=== PATIENT | female | born 1965 | race Caucasian/White ===

== ENCOUNTER 2021-12-25 04:03 | Inpatient (IN) | payer MEDICAID ==
[~2021-12-25] VITALS: Ht 167.6 cm; Wt 60.8 kg
[2021-12-25 04:08] VITALS: BP_SYST 121
[2021-12-25] MEDS ORDERED: MAGNESIUM SULFATE 50 ML IV ONE (04:30)
[2021-12-25] MEDS ORDERED: NITROGLYCERIN 0.4 MG TAB.SUBL SL ONE (04:30)
[2021-12-25] MEDS ORDERED: ACETAMINOPHEN 500 MG TABLET PO ONE (04:30)
[2021-12-25 04:36] LABS: BASOPHILS % (AUTO) 0.6 % (0.0-2.0); EOSINOPHILS # (AUTO) 0.1 K/uL (0.0-0.4); EOSINOPHILS % (AUTO) 2.1 % (0.0-4.0); HEMATOCRIT 41.2 % (36-48); HEMOGLOBIN 14.1 g/dL (12.0-16.0); LYMPHOCYTES # (AUTO) 1.6 K/uL (1.0-5.5); LYMPHOCYTES % (AUTO) 26.8 % (20.5-51.5); MEAN CORPUSCULAR HEMOGLOBIN 28 pg (27-31); MEAN CORPUSCULAR HGB CONC 34 % (32-36); MEAN CORPUSCULAR VOLUME 83 fL (79.0-98.0); MONOCYTES # (AUTO) 0.4 K/uL (0.0-1.0); MONOCYTES % (AUTO) 7.1 % (1.7-9.3); NEUTROPHILS # (AUTO) 3.9 K/uL (1.8-7.7); NEUTROPHILS % (AUTO) 63.4 % (40.0-70.0); PLATELET COUNT (AUTO) 239 K/uL (130-430); RED BLOOD CELL COUNT(AUTO) 4.96 MIL/uL (4.2-6.2); RED CELL DISTRIBUTION WIDTH 14.5 % (9.0-15.0); WHITE BLOOD COUNT (AUTO) 6.1 K/uL (4.8-10.8)
[2021-12-25 04:53] LABS: PROTHROMBIN TIME 10.4 SECS (9.5-12.5)
[2021-12-25 04:59] LABS: ANION GAP 5 (5-15); CALCIUM 8.8 mg/dL (8.4-11.0); CHLORIDE 104 mmol/L (98-107); CREATININE 1.13 mg/dL (0.55-1.30); GLUCOSE 122 mg/dL (70-99); POTASSIUM 3.1 mmol/L (3.5-5.1); SODIUM SERUM 139 mmol/L (136-145); UREA NITROGEN, BLOOD 20 mg/dL (8-21)
[2021-12-25 05:06] LABS: ALANINE AMINOTRANSFERASE 16 U/L (12-78); ALBUMIN 3.3 g/dL (3.4-4.8); ASPARTATE AMINOTRANSFERASE 35 U/L (10-37); TOTAL BILIRUBIN 0.4 mg/dL (0.0-1.0)
[2021-12-25 05:07] LABS: ACETAMINOPHEN < 1 ug/mL (1-30); ALCOHOL, BLOOD < 3 mg/dL (<10); GFR AFRICAN AMERICAN 64 mL/min (>90)
[2021-12-25] MEDS ORDERED: POTASSIUM CHLORIDE 20 MEQ/PKT PACKET PO ONE (05:15)
[2021-12-25] MEDS ORDERED: NS 250 ML IV ONE (05:15)
[2021-12-25 05:29] LABS: CKMB RELATIVE INDEX 1.1 (0.0-2.9); CREATINE KINASE MB 3.9 ng/mL (0-3.6)
[2021-12-25 05:33] LABS: BARBITURATE, URINE NEGATIVE (NEG <=200); BENZODIAZEPINE, URINE NEGATIVE (NEG <=150); CANNABINOID, URINE NEGATIVE (NEG <=50); COCAINE, URINE NEGATIVE (NEG <=150); METHAMPHETAMINES SCREEN,URINE POSITIVE (NEG <=500); OPIATE, URINE NEGATIVE (NEG <=100); PHENCYCLIDINE SCREEN,URINE NEGATIVE (NEG <=25); UR TRICYCLIC ANTIDEPRESSANTS NEGATIVE (NEG <=300); URINE AMPHETAMINE POSITIVE (NEG <=500); URINE METHADONE NEGATIVE (NEG <=200); URINE OXYCODONE SCREEN POSITIVE (NEG <=100); URINE PROPOXYPHENE SCREEN NEGATIVE (NEG <=300)
[2021-12-25] MEDS ORDERED: LORazepam 2 MG/ML VIAL IVP PRN (06:15)
[2021-12-25] MEDS ORDERED: HYDROcodone/ACETAMIN 10-325 MG TAB PO PRN (06:15)
[2021-12-25] MEDS ORDERED: NALOXONE HCL 0.4 MG/ML AMP (NARCAN) IVP PRN ×2 (06:15)
[2021-12-25] MEDS ORDERED: ONDANSETRON HCL 4 MG/2 ML VIAL IVP PRN (06:15)
[2021-12-25] MEDS ORDERED: HYDROcodone/ACETAMIN 5-325 MG TAB (NORCO/ VICODIN) PO PRN (06:15)
[2021-12-25] MEDS ORDERED: NORMAL SALINE 5 ML DISP.SYRIN IVF SCH (14:00)
[2021-12-25] MEDS: NORMAL SALINE 5 ML DISP.SYRIN IVF SCH ×2 (14:07→23:49)
[2021-12-25 15:37] LABS: THYROID STIMULATING HORMONE 0.94 uIu/mL (0.36-3.74)
[2021-12-25 16:54] VITALS: BP_SYST 140
[2021-12-25 16:57] VITALS: BP_SYST 136
[2021-12-25 20:00] VITALS: BP_SYST 151
[2021-12-25] MEDS: ACETAMINOPHEN 325 MG TABLET PO PRN (21:13)
[2021-12-26] VITALS: BP_SYST 146
[2021-12-26] MEDS: NORMAL SALINE 5 ML DISP.SYRIN IVF SCH (06:15)
[2021-12-26] MEDS: ACETAMINOPHEN 325 MG TABLET PO PRN (06:40)
[2021-12-26 06:49] LABS: BASOPHILS % (AUTO) 0.4 % (0.0-2.0); EOSINOPHILS # (AUTO) 0.2 K/uL (0.0-0.4); EOSINOPHILS % (AUTO) 5.2 % (0.0-4.0); HEMATOCRIT 40.9 % (36-48); HEMOGLOBIN 13.9 g/dL (12.0-16.0); LYMPHOCYTES # (AUTO) 1.2 K/uL (1.0-5.5); LYMPHOCYTES % (AUTO) 29.8 % (20.5-51.5); MEAN CORPUSCULAR HEMOGLOBIN 29 pg (27-31); MEAN CORPUSCULAR HGB CONC 34 % (32-36); MEAN CORPUSCULAR VOLUME 84 fL (79.0-98.0); MONOCYTES # (AUTO) 0.3 K/uL (0.0-1.0); MONOCYTES % (AUTO) 8.5 % (1.7-9.3); NEUTROPHILS # (AUTO) 2.3 K/uL (1.8-7.7); NEUTROPHILS % (AUTO) 56.1 % (40.0-70.0); PLATELET COUNT (AUTO) 199 K/uL (130-430); RED BLOOD CELL COUNT(AUTO) 4.86 MIL/uL (4.2-6.2); RED CELL DISTRIBUTION WIDTH 14.8 % (9.0-15.0); WHITE BLOOD COUNT (AUTO) 4.1 K/uL (4.8-10.8)
[2021-12-26 07:05] LABS: CALCIUM 8.2 mg/dL (8.4-11.0); CREATININE 0.91 mg/dL (0.55-1.30); POTASSIUM 3.6 mmol/L (3.5-5.1)
[2021-12-26 08:00] VITALS: BP_SYST 146
[2021-12-26] MEDS ORDERED: CARVEDILOL 6.25 MG TABLET (COREG) PO ONE (10:45)
[2021-12-26] MEDS ORDERED: ATORVASTATIN 20 MG TABLET PO ONE (11:00)
[2021-12-26] MEDS ORDERED: LIP20 PO (11:26)
[2021-12-26] MEDS ORDERED: COR6.25 PO (11:26)
[2021-12-26 11:35] VITALS: BP_SYST 121
[2021-12-26] MEDS ORDERED: LOSARTAN POTASSIUM 50 MG TABLET (COZAAR) PO ONE (12:00)
[2021-12-26 12:48] VITALS: BP_SYST 121
[2021-12-27] MEDS ORDERED: ATORVASTATIN 20 MG TABLET PO SCH (09:00)
[2021-12-27] MEDS ORDERED: LOSARTAN POTASSIUM 50 MG TABLET (COZAAR) PO SCH (09:00)
[2021-12-27] MEDS ORDERED: ONDA-8 TL (11:42)
[2021-12-27] MEDS ORDERED: HYDR-3917 PO (11:42)
== END 2021-12-26 12:35 | disposition home or self-care (01) | DRG 203 ==
LOC: SED 04:03 → STU 05:38
PROVIDERS: ADMIT Preventive Medicine Preventive Medicine/Occupational Environmental Medicine; ATTEND Preventive Medicine Preventive Medicine/Occupational Environmental Medicine
DX: R07.89 Other chest pain (principal); E88.09 Other disorders of plasma-protein metabolism, not elsewhere classified; I42.7 Cardiomyopathy due to drug and external agent; E87.6 Hypokalemia; F15.10 Other stimulant abuse, uncomplicated; F32.A Depression, unspecified; I10 Essential (primary) hypertension; R73.9 Hyperglycemia, unspecified; Z20.822 Contact with and (suspected) exposure to COVID-19; Z79.899 Other long term (current) drug therapy; Z86.73 Personal history of transient ischemic attack (TIA), and cerebral infarction without residual deficits
CPT/HCPCS: 36415; 71045; 80048; 80053; 80061; 80307; 82550; 82553; 83880; 84443; 84484; 85025; 85379; 85610-TC; 85730-TC; 93005; 93306; 96365; 99285; G0378; G0480; G0481; G0482; J3475

== ENCOUNTER 2021-12-26 22:49 | Emergency (ER) | payer MEDICAID ==
[~2021-12-26] VITALS: Ht 165.1 cm; Wt 65.8 kg
[~2021-12-26 22:49] MED LIST: COR6.25 PO; LIP20 PO
[2021-12-26 23:10] VITALS: BP_SYST 170
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
--- NOTE | 2021-12-26 23:25 | NUR ---
Blood samples sent to lab
--- NOTE | 2021-12-26 23:35 | NUR ---
First contact. Pt lying in bed crying. Presently on monitor.
--- NOTE | 2021-12-26 23:45 | NUR ---
Dr. Aguilar present in room at this time.
[2021-12-27] MEDS ORDERED: ONDANSETRON 4 MG ODT TAB PO ONE
[2021-12-27 00:21] LABS: HEMATOCRIT 41.8 % (36-48)
[2021-12-27 00:24] LABS: CALCIUM 8.6 mg/dL (8.4-11.0); CREATININE 1.03 mg/dL (0.55-1.30); POTASSIUM 3.8 mmol/L (3.5-5.1)
[2021-12-27 00:27] LABS: BASOPHILS % (AUTO) 0.3 % (0.0-2.0); EOSINOPHILS # (AUTO) 0.2 K/uL (0.0-0.4); EOSINOPHILS % (AUTO) 2.3 % (0.0-4.0); LYMPHOCYTES # (AUTO) 1.4 K/uL (1.0-5.5); MEAN CORPUSCULAR HEMOGLOBIN 28 pg (27-31); MEAN CORPUSCULAR HGB CONC 34 % (32-36); MEAN CORPUSCULAR VOLUME 85 fL (79.0-98.0); MONOCYTES # (AUTO) 0.5 K/uL (0.0-1.0); MONOCYTES % (AUTO) 7.2 % (1.7-9.3); NEUTROPHILS # (AUTO) 4.5 K/uL (1.8-7.7); NEUTROPHILS % (AUTO) 68.2 % (40.0-70.0); PLATELET COUNT (AUTO) 247 K/uL (130-430); RED BLOOD CELL COUNT(AUTO) 4.95 MIL/uL (4.2-6.2); RED CELL DISTRIBUTION WIDTH 14.4 % (9.0-15.0); WHITE BLOOD COUNT (AUTO) 6.6 K/uL (4.8-10.8)
[2021-12-27 00:30] LABS: ALBUMIN 3.3 g/dL (3.4-4.8); TOTAL BILIRUBIN 0.3 mg/dL (0.0-1.0)
[2021-12-27 02:09] LABS: BILIRUBIN,URINE NEGATIVE (NEGATIVE); BLOOD, URINE NEGATIVE (NEGATIVE); CLARITY/URINE CLEAR (CLEAR); COLOR,URINE YELLOW (YELLOW); GLUCOSE,URINE NEGATIVE (NEGATIVE); KETONES,URINE NEGATIVE (NEGATIVE); LEUKOCYTE ESTERASE ,URINE NEGATIVE (NEGATIVE); NITRITE, URINE NEGATIVE (NEGATIVE); PROTEIN URINE NEGATIVE (NEGATIVE); UROBILINOGEN,URINE 0.2 (0.2-1.0)
--- NOTE | 2021-12-27 07:00 | NUR ---
Pt visibly upset and cries everytime I am in the room.
--- NOTE | 2021-12-27 07:06 | NUR ---
Pt refuses to allow peer to discharge her. Pt visibly crying. Notifying dayshift nurse to handle.
--- NOTE | 2021-12-27 07:15 | NUR ---
RECEIVED PT IN BED #8 EMOTIONAL, NAD, VSS, AAOx3, STATES THE ABDOMINAL PAIN TO THE EPIGASTRIC AND MID ABDOMEN. MD NOTIFIED THAT PAIN REMAINS. ORDERS TO FOLLOW
[2021-12-27] MEDS ORDERED: MAG HYDROX/AL HYDROX/SIMETH 30 ML, LIDOCAINE VISCOUS 2% 15ML (PO) 15 ML, DICYCLOMINE HC... PO ONE ×3 (07:30)
[2021-12-27] MEDS ORDERED: NACL 0.9% 1,000 ML IV ONE (08:15)
[2021-12-27] MEDS ORDERED: KETOROLAC TROMETHAMINE 30 MG VIAL IVP ONE (08:15)
--- NOTE | 2021-12-27 09:30 | NUR ---
PT HAD U/S COMPLETED, TOLERATED WELL, AWAITING DISPOSITION WITH PLAN OF CARE AFTER RESULTS
[2021-12-27 11:30] VITALS: BP_SYST 130
[2021-12-27] MEDS ORDERED: ONDA-8 TL (11:42)
[2021-12-27] MEDS ORDERED: HYDR-3917 PO (11:42)
[2021-12-27] MEDS ORDERED: MORPHINE 4 MG INJ. 4 MG/ML VIAL IVP ONE ×2 (11:45)
--- NOTE | 2021-12-27 12:18 | NUR ---
Patient given written and verbal discharge instructions and verbalizes understanding. ER MD discussed with patient the results and treatment provided. Patient in stable condition. ID arm band removed. IV catheter removed intact and dressing applied, no active bleeding. Patient educated on pain management and to follow up with PMD. Pain Scale 0/10. Opportunity for questions provided and answered.
== END 2021-12-27 12:18 | disposition home or self-care (01) ==
LOC: SED 22:49
DX: S09.90XA Unspecified injury of head, initial encounter (principal); R10.9 Unspecified abdominal pain; I10 Essential (primary) hypertension; Z79.899 Other long term (current) drug therapy; Y04.0XXA Assault by unarmed brawl or fight, initial encounter; Y93.89 Activity, other specified; Y92.89 Other specified places as the place of occurrence of the external cause; Y99.8 Other external cause status
CPT/HCPCS: 36415; 70450; 74176; 76376; 76700; 80053; 81003; 81025; 83690; 85025; 96361; 96374; 96375; 96376; 99285; J1885; J2001; J2270; J7030; Q0162

== ENCOUNTER 2022-01-05 09:07 | Emergency (ER) | payer MEDICAID, OTHER ==
[~2022-01-05] VITALS: Ht 175.3 cm; Wt 68.0 kg
[2022-01-05 09:07] VITALS: BP_SYST 111
[~2022-01-05 09:07] MED LIST changes: +HYDR-3917 PO; +ONDA-8 TL
--- NOTE | 2022-01-05 09:07 | NUR ---
BROUGHT BACK TO BED #5 AND TRIAGED. REPORT GIVEN TO TANA
--- NOTE | 2022-01-05 09:42 | NUR ---
ER at bedside examining patient.
[2022-01-05] MEDS ORDERED: ONDANSETRON HCL 4 MG/2 ML VIAL IVP ONE (10:00)
[2022-01-05] MEDS ORDERED: NACL 0.9% 1,000 ML IV ONE (10:00)
[2022-01-05] MEDS ORDERED: KETOROLAC TROMETHAMINE 30 MG VIAL IVP ONE (10:00)
--- NOTE | 2022-01-05 10:06 | NUR ---
Pt present to ED with complaint of generalized abdominal pain. Aox4 GCS 15. Pt appears disheveled, rambling with incoherent though process and unable to stay awake. Pt denies SI or HI. Will continue to monitor pt
[2022-01-05 10:10] LABS: BASOPHILS % (AUTO) 0.5 % (0.0-2.0); EOSINOPHILS # (AUTO) 0.1 K/uL (0.0-0.4); EOSINOPHILS % (AUTO) 2.4 % (0.0-4.0); HEMATOCRIT 42.1 % (36-48); LYMPHOCYTES # (AUTO) 1.1 K/uL (1.0-5.5); LYMPHOCYTES % (AUTO) 20.6 % (20.5-51.5); MEAN CORPUSCULAR HEMOGLOBIN 29 pg (27-31); MEAN CORPUSCULAR HGB CONC 33 % (32-36); MEAN CORPUSCULAR VOLUME 86 fL (79.0-98.0); MONOCYTES # (AUTO) 0.3 K/uL (0.0-1.0); MONOCYTES % (AUTO) 5.5 % (1.7-9.3); NEUTROPHILS # (AUTO) 3.8 K/uL (1.8-7.7); PLATELET COUNT (AUTO) 257 K/uL (130-430); RED CELL DISTRIBUTION WIDTH 14.6 % (9.0-15.0); WHITE BLOOD COUNT (AUTO) 5.4 K/uL (4.8-10.8)
[2022-01-05 10:12] VITALS: BP_SYST 166
[2022-01-05 10:35] LABS: CALCIUM 8.6 mg/dL (8.4-11.0); POTASSIUM 3.4 mmol/L (3.5-5.1)
[2022-01-05 10:42] LABS: ALBUMIN 3.4 g/dL (3.4-4.8); TOTAL BILIRUBIN 0.6 mg/dL (0.0-1.0)
[2022-01-05 11:29] LABS: BARBITURATE, URINE NEGATIVE (NEG <=200); CANNABINOID, URINE NEGATIVE (NEG <=50); COCAINE, URINE NEGATIVE (NEG <=150); METHAMPHETAMINES SCREEN,URINE POSITIVE (NEG <=500); OPIATE, URINE NEGATIVE (NEG <=100); PHENCYCLIDINE SCREEN,URINE NEGATIVE (NEG <=25); UR TRICYCLIC ANTIDEPRESSANTS NEGATIVE (NEG <=300); URINE AMPHETAMINE POSITIVE (NEG <=500); URINE METHADONE NEGATIVE (NEG <=200); URINE OXYCODONE SCREEN NEGATIVE (NEG <=100); URINE PROPOXYPHENE SCREEN NEGATIVE (NEG <=300)
[2022-01-05 11:30] LABS: BENZODIAZEPINE, URINE POSITIVE (NEG <=150)
[2022-01-05] MEDS ORDERED: POTASSIUM CHLORIDE 20 MEQ/PKT PACKET PO ONE (11:45)
[2022-01-05] MEDS ORDERED: IBUP-1969 PO (12:36)
--- NOTE | 2022-01-05 13:40 | NUR ---
PT YELLING AND SCREAMING AT STAFF AND DR. SALEH REFUSING TO LEAVE HOSPITAL. SECURITY WAS CALLED AND THEN [facility] CALLED. PT WAS ESCORTED OUT OF ER BY REYES PAVON.
--- NOTE | 2022-01-05 14:33 | NUR ---
Pt D/C but refused to leave ED stating that her concerns have not been addressed. ED physician explained to pt that she does not meet criteria for admission and should follow up with her PCP. Pt still in uncooperative. Hospital security called to see pt. PD called to escort pt out of ED. Pt escorted by PD out of ED. IV access D/C. Pt refused to sign D/C form
== END 2022-01-05 14:33 | disposition home or self-care (01) ==
LOC: SED 09:07
DX: K80.20 Calculus of gallbladder without cholecystitis without obstruction (principal); N28.1 Cyst of kidney, acquired; E87.6 Hypokalemia; I11.0 Hypertensive heart disease with heart failure; I50.9 Heart failure, unspecified; N83.209 Unspecified ovarian cyst, unspecified side; F19.10 Other psychoactive substance abuse, uncomplicated; F15.929 Other stimulant use, unspecified with intoxication, unspecified; F12.90 Cannabis use, unspecified, uncomplicated; Z79.899 Other long term (current) drug therapy
CPT/HCPCS: 36415; 76700; 80053; 80307; 83690; 85025; 96361; 96374; 96375; 99284; J1885; J2405; J7030